=== PATIENT | female | born 1990 | race Caucasian/White ===

== ENCOUNTER 2016-09-05 11:30 | Emergency (ER) | payer OTHER ==
[~2016-09-05] VITALS: Ht 172.7 cm; Wt 104.5 kg
[2016-09-05 11:33] VITALS: TEMP 98.4
[2016-09-05] MEDS ORDERED: PROTONIX40 MG/Pack PO (11:39)
[2016-09-05] MEDS ORDERED: INDERAL40 MG PO (11:40)
[2016-09-05 12:29] LABS: BASO # 0.1 (0.0-0.2); BASO % 0.6 % (0.0-2.0); EOS # 0.3 (0.0-0.7); EOS % 3.9 % (0-4.0); GRAN # 5.3 (1.4-6.5); GRAN % 67.1 % (42.2-75.2); HEMATOCRIT 37.5 % (37.0-47.0); HEMOGLOBIN 12.3 g/dl (12.5-16.0); LYMPH # 1.7 (1.2-3.4); LYMPH % 20.8 % (20.0-51.0); MEAN CELL VOLUME 87 fl (80.0-100.0); MEAN CORPUSCULAR HEMOGLOBIN 29 pg (27.0-31.0); MEAN CORPUSCULAR HGB CONC 33 g/dl (33.0-37.0); MEAN PLATELET VOLUME 9.5 fl (7.4-10.4); MONO # 0.6 (0.1-0.6); MONO % 7.2 % (1.7-9.3); PLATELET COUNT 234 K/mm3 (130-400); RED BLOOD COUNT 4.31 M/mm3 (4.10-5.30); REDCELL DISTRIBUTION WIDTH-CV 12.1 % (11.5-14.5); WHITE BLOOD COUNT 7.9 K/mm3 (4.8-10.8)
[2016-09-05 12:41] LABS: ADJUSTED CALCIUM 9.2 mg/dL (8.4-10.2); ALBUMIN 3.5 gm/dL (3.5-5.0); BILIRUBIN,TOTAL 0.7 mg/dL (0.0-1.0); C-REACTIVE PROTEIN 2.3 mg/dL (0.0-0.9); CALCIUM 8.8 mg/dL (8.4-10.2); CREATININE, serum 0.77 mg/dL (0.52-1.25); POTASSIUM 3.7 mmol/L (3.4-5.0); TOTAL PROTEIN 6.5 gm/dL (6.4-8.2)
[2016-09-05 13:47] LABS: PH 6 (5-8); SQUAMOUS EPITHELIAL 0-2 /hpf; URINE APPEARANCE Clear; URINE BACTERIA Rare /hpf; URINE BILIRUBIN Negative (NEGATIVE); URINE BLOOD Negative (NEGATIVE); URINE COLOR Straw; URINE GLUCOSE Negative (NEGATIVE); URINE KETONE Negative (NEGATIVE); URINE RBC 0-2 /hpf; URINE UROBILINOGEN Negative (NEGATIVE); URINE WBC 0-2 /hpf
[2016-09-05 14:40] VITALS: BP 94/58; PULSE 71
[2016-09-06] MEDS ORDERED: ZOFRAN8 MG PO (06:08)
[2016-09-06] MEDS ORDERED: ULTRAM 50MG TAB50 MG PO (06:08)
== END 2016-09-05 14:40 | disposition home or self-care (01) ==
LOC: COL.ER 11:30
PROVIDERS: Emergency Medicine
DX: R10.31 Right lower quadrant pain (principal); K21.9 Gastro-esophageal reflux disease without esophagitis; R11.0 Nausea; Z98.84 Bariatric surgery status; K20.9 Esophagitis, unspecified; K80.20 Calculus of gallbladder without cholecystitis without obstruction
CPT/HCPCS: J1170; J2550; J7030; Q9967

== ENCOUNTER 2016-09-06 05:05 | Emergency (ER) | payer OTHER ==
[~2016-09-06] VITALS: Ht 172.7 cm; Wt 104.5 kg
[~2016-09-06 05:05] MED LIST: INDERAL40 MG PO; PROTONIX40 MG/Pack PO
[2016-09-06 05:10] VITALS: TEMP 97.6
[2016-09-06 05:44] LABS: BASO # 0.1 (0.0-0.2); BASO % 0.8 % (0.0-2.0); EOS # 0.4 (0.0-0.7); GRAN # 3.2 (1.4-6.5); GRAN % 50.1 % (42.2-75.2); HEMATOCRIT 37.9 % (37.0-47.0); HEMOGLOBIN 12.2 g/dl (12.5-16.0); LYMPH # 2.2 (1.2-3.4); LYMPH % 34.4 % (20.0-51.0); MEAN CELL VOLUME 88 fl (80.0-100.0); MEAN CORPUSCULAR HEMOGLOBIN 28 pg (27.0-31.0); MEAN CORPUSCULAR HGB CONC 32 g/dl (33.0-37.0); MEAN PLATELET VOLUME 9.4 fl (7.4-10.4); MONO # 0.5 (0.1-0.6); MONO % 8.5 % (1.7-9.3); PLATELET COUNT 228 K/mm3 (130-400); RED BLOOD COUNT 4.33 M/mm3 (4.10-5.30); REDCELL DISTRIBUTION WIDTH-CV 12.1 % (11.5-14.5); WHITE BLOOD COUNT 6.3 K/mm3 (4.8-10.8)
[2016-09-06 05:51] LABS: ADJUSTED CALCIUM 9.3 mg/dL (8.4-10.2); ALBUMIN 3.3 gm/dL (3.5-5.0); BILIRUBIN,TOTAL 0.6 mg/dL (0.0-1.0); CALCIUM 8.7 mg/dL (8.4-10.2); CREATININE, serum 0.7 mg/dL (0.52-1.25); POTASSIUM 3.8 mmol/L (3.4-5.0); TOTAL PROTEIN 6.4 gm/dL (6.4-8.2)
[2016-09-06] MEDS ORDERED: ULTRAM 50MG TAB50 MG PO (06:08)
[2016-09-06] MEDS ORDERED: ZOFRAN8 MG PO (06:08)
[2016-09-06 06:59] VITALS: BP 109/74; PULSE 75
== END 2016-09-06 07:01 | disposition home or self-care (01) ==
LOC: COL.ER 05:05
PROVIDERS: Emergency Medicine
DX: R10.31 Right lower quadrant pain (principal); R10.13 Epigastric pain; K21.9 Gastro-esophageal reflux disease without esophagitis; R11.0 Nausea; R63.0 Anorexia; Z98.84 Bariatric surgery status; Z79.02 Long term (current) use of antithrombotics/antiplatelets
CPT/HCPCS: J1170; J1885; J2405; J7030

== ENCOUNTER 2017-11-14 09:48 | Emergency (ER) | payer BC ==
[~2017-11-14] VITALS: Ht 172.7 cm; Wt 99.5 kg
[~2017-11-14 09:48] MED LIST changes: +ULTRAM 50MG TAB50 MG PO; +ZOFRAN8 MG PO
[2017-11-14 09:53] VITALS: TEMP 98.3
[2017-11-14] MEDS ORDERED: HYCET SOLN PO (11:37)
[2017-11-14 11:51] VITALS: BP 105/72; PULSE 85
== END 2017-11-14 11:53 | disposition home or self-care (01) ==
LOC: COL.ER 09:48
DX: B27.90 Infectious mononucleosis, unspecified without complication (principal); J02.9 Acute pharyngitis, unspecified
CPT/HCPCS: J1100; J1885; J2405; J7030

== ENCOUNTER 2018-07-15 07:48 | Day surgery (SDC) | payer BC ==
[~2018-07-15] VITALS: Ht 172.7 cm; Wt 107.3 kg
[~2018-07-15 07:48] MED LIST changes: +HYCET SOLN PO
[2018-07-15 08:00] VITALS: BP 147/86; PULSE 78; TEMP 97.8
[2018-07-15] MEDS ORDERED: WELLBUTRIN SR150 M1 PO (08:05)
[2018-07-15] MEDS ORDERED: APRI 0.15 MG-0.1 TAB PO (08:05)
[2018-07-15 09:05] VITALS: BP 116/74; PULSE 83; TEMP 98.3
--- NOTE | 2018-07-15 09:05 | NUR ---
Patient returned to [facility]. Alert and oriented. Vital signs obtained, WNL. No complaints of pain or nausea. Boy friend at bedside. Requesting water and crackers at this time. Tolerating well. Call morales within reach, will conitnue to monitor.
[2018-07-15 09:20] VITALS: BP 126/83; PULSE 74
[2018-07-15 09:35] VITALS: BP 119/70; PULSE 70
--- NOTE | 2018-07-15 09:48 | NUR ---
Patient ambulated with this RN to lobby. Justen boyfriend to drive home.
== END 2018-07-15 09:48 | disposition home or self-care (01) ==
LOC: SDCO 07:48
DX: K22.70 Barrett's esophagus without dysplasia (principal); K21.9 Gastro-esophageal reflux disease without esophagitis; Z88.6 Allergy status to analgesic agent; Z88.2 Allergy status to sulfonamides; K22.2 Esophageal obstruction; Z90.49 Acquired absence of other specified parts of digestive tract; F32.9 Major depressive disorder, single episode, unspecified; Z83.79 Family history of other diseases of the digestive system
CPT/HCPCS: J2704; J7030